=== PATIENT | male | born 1970 | race Caucasian/White ===

== ENCOUNTER 2017-12-22 05:31 | Day surgery (SDC) | payer OTHER ==
[~2017-12-22] VITALS: Ht 165.1 cm; Wt 71.6 kg
[~2017-12-22 05:31] MED LIST: ALLERGY RELIE15.8 ML BOTH NARES; FLONASE16 G1 BOTH NARES; LEVAQUIN500 MG PO; VENTOLIN HFA18 GM IH
[2017-12-22 05:54] VITALS: BP 155/88
[2017-12-22] MEDS ORDERED: COLACE100 MG PO (09:02)
[2017-12-22] MEDS ORDERED: DILAUDID4 MG PO (09:02)
[2017-12-22] MEDS ORDERED: ONDANSETRON HCL8 MG PO (09:02)
[2017-12-22 10:20] VITALS: BP 142/77
[2017-12-22 11:27] VITALS: BP 140/77
== END 2017-12-22 11:25 | disposition home or self-care (01) ==
LOC: SDC 05:31
PROC: 0DTJ4ZZ Resection of Appendix, Percutaneous Endoscopic Approach (ICD-10-PCS; principal; 2017-12-22)
DX: C18.1 Malignant neoplasm of appendix (principal); F41.9 Anxiety disorder, unspecified; J45.909 Unspecified asthma, uncomplicated; Z88.2 Allergy status to sulfonamides
CPT/HCPCS: 88305; J0131; J0330; J1100; J2250; J2710; J3010; Q0175; S0074